=== PATIENT | male | born 1955 | race African-American/Black ===

== ENCOUNTER 2016-12-07 10:06 | Emergency (ER) | payer MEDICARE, MEDICAID ==
[~2016-12-07] VITALS: Ht 182.9 cm; Wt 70.0 kg
[~2016-12-07 10:06] MED LIST: AMOXICILLIN875 MG PO; BP MED; CHLORTHALIDONE25 MG PO; CORTISPORIN OTI10 ML AD; DEBROX6.5 % AD; FLEXERIL OR; FLEXERIL PO; FLOMAX0.4 M1 PO; FLONASE NASAL50 MCG; HYTONE2.5 % EX; LISINOPRIL10 MG PO; LISINOPRIL20 MG PO; LOPRESSOR 550 MG/TAB PO; MEDDOSEPAK OR; METOPROL TAR25 M1 PO; METOPROL TAR50 MG PO; METOPROLOL25 M1 PO; NAPROSYN500 MG OR; NAPROSYN500 MG PO; OMEPRAZOLE40 MG PO; PRILOSEC40 MG PO; TRIAMCINOLON0.11 EX; ULTRAM50 M1 PO
[2016-12-07 11:11] VITALS: BP 165/78
== END 2016-12-07 11:19 | disposition home or self-care (01) ==
LOC: ED 10:06
PROC: 0HQ0XZZ Repair Scalp Skin, External Approach (ICD-10-PCS; principal; 2016-12-07)
DX: S01.01XA Laceration without foreign body of scalp, initial encounter (principal); I10 Essential (primary) hypertension; K21.9 Gastro-esophageal reflux disease without esophagitis; W22.8XXA Striking against or struck by other objects, initial encounter; Y93.89 Activity, other specified; Y92.009 Unspecified place in unspecified non-institutional (private) residence as the place of occurrence of the external cause

== ENCOUNTER 2017-11-08 07:53 | Day surgery (SDC) | payer MEDICARE, MEDICAID ==
[~2017-11-08] VITALS: Ht 182.9 cm; Wt 65.8 kg
[~2017-11-08 07:53] MED LIST changes: +AUG BETAMET0.05 % EX; +CALCIUM 600 +600 MG; +DILAUDID8 MG PO; +LIPITOR20 M1 PO; +LIPITOR40 M1 PO; +LOSARTAN POTASS1 TA1 PO; +METFORMIN500 MG PO; +MOTRIN400 MG PO
[2017-11-08 10:04] VITALS: BP 146/81
== END 2017-11-08 10:15 | disposition home or self-care (01) ==
LOC: ENDO 07:53
PROVIDERS: ATTEND Surgery
PROC: 0DBP8ZX Excision of Rectum, Via Natural or Artificial Opening Endoscopic, Diagnostic (ICD-10-PCS; principal; 2017-11-08)
DX: Z12.11 Encounter for screening for malignant neoplasm of colon (principal); D12.8 Benign neoplasm of rectum

== ENCOUNTER 2017-12-29 09:13 | Emergency (ER) | payer MEDICARE, MEDICAID ==
[~2017-12-29] VITALS: Ht 182.9 cm; Wt 70.0 kg
[2017-12-29] MEDS ORDERED: OFLOXACIN0.3 % OD (10:22)
[2017-12-29 10:32] VITALS: BP 138/82
== END 2017-12-29 10:35 | disposition home or self-care (01) ==
LOC: ED 09:13
DX: H10.9 Unspecified conjunctivitis (principal); I10 Essential (primary) hypertension; E11.9 Type 2 diabetes mellitus without complications

== ENCOUNTER 2022-09-06 10:27 | Emergency (ER) | payer MEDICARE, MEDICAID ==
[~2022-09-06] VITALS: Ht 182.9 cm; Wt 88.9 kg
[~2022-09-06 10:27] MED LIST changes: +OFLOXACIN0.3 % OD
[2022-09-06 10:32] VITALS: BP 137/82
[2022-09-06] MEDS ORDERED: OXYCODONE20 M1 PO (10:44)
[2022-09-06 10:48] LABS: BASO% 0.5 % (0-3); EOS% 3.7 % (0-8); HEMATOCRIT 45.9 % (39.0-50.0); HEMOGLOBIN 14.7 g/dl (14.0-18.0); IMMATURE GRANULOCYTES 1.1 % (0.0-5.0); LYMPH% 23.9 % (15-41); MEAN CELL VOLUME 92.4 fL CALC (80.0-100.0); MEAN CORPUSCULAR HGB 29.6 pG CALC (26.0-32.0); MONO% 11.9 % (2-13); NEUT# 3.8 thou/uL (1.82-7.42); NEUT% 58.9 % (42-76); RED BLOOD COUNT 4.97 mill/uL (4.70-6.10); RED CELL DISTRI WIDTH 13.1 % (11.5-15.5)
[2022-09-06 10:59] LABS: ALBUMIN 4.5 g/dL (3.2-5.0); ALKALINE PHOSPHATASE 85 u/l (38-126); ANION GAP 10 (6-22 (CALC)); BUN 30 mg/dL (8-23); BUN/CREATININE RATIO 24 (12-20 (CALC)); CARBON DIOXIDE 29 mmol/l (22-30); CHLORIDE 105 mmol/l (95-108); CREATININE 1.2 mg/dL (0.7-1.3); GFR FOR AFR.AMER. > 60 ML/MIN (>=60 (CALC)); GFR OTHER RACES 60 ML/MIN (>=60 (CALC)); POTASSIUM 3.7 mmol/l (3.5-5.1); SGOT/AST 37 u/l (19-48); SODIUM 140 mmol/l (137-146)
[2022-09-06 11:00] VITALS: BP 131/75
[2022-09-06 11:00] LABS: BILIRUBIN, TOTAL 0.6 mg/dL (0.2-1.3)
[2022-09-06 12:00] VITALS: BP 126/73
[2022-09-06 12:31] VITALS: BP 135/77
[2022-09-06 13:00] VITALS: BP 144/79
[2022-09-06 13:30] VITALS: BP 130/77
== END 2022-09-06 13:34 | disposition home or self-care (01) ==
LOC: ED 10:27
PROVIDERS: Family Medicine
DX: R07.9 Chest pain, unspecified (principal); I10 Essential (primary) hypertension; E11.9 Type 2 diabetes mellitus without complications; J44.9 Chronic obstructive pulmonary disease, unspecified; F17.200 Nicotine dependence, unspecified, uncomplicated; Z20.822 Contact with and (suspected) exposure to COVID-19
CPT/HCPCS: Q9967

== ENCOUNTER 2023-01-18 08:17 | Day surgery (SDC) | payer MEDICARE, MEDICAID ==
[~2023-01-18] VITALS: Ht 180.3 cm; Wt 87.5 kg
[~2023-01-18 08:17] MED LIST changes: +BUDESONID2 IN; +METFORMIN500 M2 PO; +OXYCODONE20 M1 PO; +TRELEGY ELLIPTA1 AER IN; +VENTOLIN HFA108 MCG IN
[2023-01-18 16:01] VITALS: BP 126/69
== END 2023-01-18 16:08 | disposition home or self-care (01) ==
LOC: ORM 08:17
PROVIDERS: ATTEND Orthopaedic Surgery
PROC: 0RRK00Z Replacement of Left Shoulder Joint with Reverse Ball and Socket Synthetic Substitute, Open Approach (ICD-10-PCS; principal; 2023-01-18)
PROC: 0LS40ZZ Reposition Left Upper Arm Tendon, Open Approach (ICD-10-PCS; 2023-01-18)
DX: M75.122 Complete rotator cuff tear or rupture of left shoulder, not specified as traumatic (principal); S46.112A Strain of muscle, fascia and tendon of long head of biceps, left arm, initial encounter; M19.012 Primary osteoarthritis, left shoulder; I10 Essential (primary) hypertension; E11.9 Type 2 diabetes mellitus without complications; X58.XXXA Exposure to other specified factors, initial encounter
CPT/HCPCS: J0131; J0690

== ENCOUNTER 2024-07-02 09:01 | Emergency (ER) | payer MEDICARE, MEDICAID ==
[~2024-07-02] VITALS: Ht 180.3 cm; Wt 83.9 kg
[2024-07-02 10:07] LABS: BASO% 0.3 % (0-3); EOS% 2.5 % (0-8); HEMOGLOBIN 15.7 g/dl (14.0-18.0); IMMATURE GRANULOCYTES 0.4 % (0.0-5.0); LYMPH% 19.5 % (15-41); MEAN CELL VOLUME 93.6 fL CALC (80.0-100.0); MEAN CORPUSCULAR HGB 29.4 pG CALC (26.0-32.0); MEAN CORPUSCULAR HGB CONC 31.4 g/dL CAL (32.0-36.0); MONO% 14.5 % (2-13); NEUT# 4.19 thou/uL (1.82-7.42); NEUT% 62.8 % (42-76); RED BLOOD COUNT 5.34 mill/uL (4.70-6.10); RED CELL DISTRI WIDTH 13.8 % (11.5-15.5)
[2024-07-02 10:26] LABS: ALBUMIN 4.9 g/dL (3.2-5.0); TOTAL PROTEIN 8.7 g/dL (6.3-8.2)
[2024-07-02 10:29] LABS: BILIRUBIN, TOTAL 0.8 mg/dL (0.2-1.3)
[2024-07-02 12:06] VITALS: BP 184/99
== END 2024-07-02 12:11 | disposition home or self-care (01) ==
LOC: ED 09:01
PROVIDERS: Family Medicine
DX: R07.81 Pleurodynia (principal); I10 Essential (primary) hypertension; E11.9 Type 2 diabetes mellitus without complications; W17.89XA Other fall from one level to another, initial encounter; Y92.009 Unspecified place in unspecified non-institutional (private) residence as the place of occurrence of the external cause; Z79.84 Long term (current) use of oral hypoglycemic drugs

== ENCOUNTER 2024-08-13 16:07 | Emergency (ER) | payer MEDICARE, MEDICAID ==
[~2024-08-13] VITALS: Ht 180.3 cm; Wt 98.0 kg
[2024-08-13] VITALS (8 sets, daily range): BP systolic 147–189; BP diastolic 93–103
[2024-08-13] MEDS ORDERED: LIDOcaine HCl 1% (Local Anesth.) 20 ML VIAL STI ONE (16:25)
[2024-08-13] MEDS ORDERED: CEPHALEXIN500 MG PO (17:21)
[2024-08-13] MEDS ORDERED: Diph, Acellular Pertussis, Tet 0.5 ML/VIAL (Tdap) SDV IM ONE (17:25)
== END 2024-08-13 18:16 | disposition home or self-care (01) ==
LOC: ED 16:07
PROC: 0HQ3XZZ Repair Left Ear Skin, External Approach (ICD-10-PCS; principal; 2024-08-13)
PROC: 0HQ1XZZ Repair Face Skin, External Approach (ICD-10-PCS; 2024-08-13)
DX: S01.312A Laceration without foreign body of left ear, initial encounter (principal); S01.111A Laceration without foreign body of right eyelid and periocular area, initial encounter; I10 Essential (primary) hypertension; E78.5 Hyperlipidemia, unspecified; E11.9 Type 2 diabetes mellitus without complications; J44.9 Chronic obstructive pulmonary disease, unspecified; Y09 Assault by unspecified means; Y92.009 Unspecified place in unspecified non-institutional (private) residence as the place of occurrence of the external cause; Z86.73 Personal history of transient ischemic attack (TIA), and cerebral infarction without residual deficits; Z79.84 Long term (current) use of oral hypoglycemic drugs
CPT/HCPCS: 90715

== ENCOUNTER 2024-08-23 14:43 | Emergency (ER) | payer MEDICARE, MEDICAID ==
[~2024-08-23] VITALS: Ht 180.3 cm; Wt 90.0 kg
[~2024-08-23 14:43] MED LIST changes: +CEPHALEXIN500 MG PO
[2024-08-23 14:49] VITALS: BP 137/90
[2024-08-23 15:00] VITALS: BP 134/87
[2024-08-23 15:25] VITALS: BP 134/87
== END 2024-08-23 15:25 | disposition home or self-care (01) ==
LOC: ED 14:43
DX: S01.111D Laceration without foreign body of right eyelid and periocular area, subsequent encounter (principal); S01.312D Laceration without foreign body of left ear, subsequent encounter; I10 Essential (primary) hypertension; E11.9 Type 2 diabetes mellitus without complications; X58.XXXD Exposure to other specified factors, subsequent encounter; Z79.84 Long term (current) use of oral hypoglycemic drugs